=== PATIENT | female | born 1965 | race Two or more races ===

== ENCOUNTER → 2016-06-06 | Outpatient (CLI) | payer MEDICARE, OTHER ==
[~2016-06-06] MED LIST: ALPR0.5T PO; ATOR20TA38 PO; DULO60CA6 PO; NAPR-688 PO; OMEP20CA16 PO
--- NOTE | 2016-06-07 07:54 | HKNOTE ---
DATE OF SERVICE: 06/06/2016 The patient comes for preoperative evaluation. She is scheduled to have an operative arthroscopy on the ____ knee on 06/11/2016. She has been cleared for surgery by her recorder gravity prospecting, Dr. Cook. She took a recent fall 2 days ago, landing on both knees. She has some pain in the right knee, and she asked me to "check it out." The right knee was more severely injured in the fall than the left knee . She has not had any further locking episodes of the left knee. However, she continues to have pain in the knee, and from time to time it "catches." Note that she has a lump over the medial aspect of the knee at the exact point where the artificial cruciate ligament was anchored. It is not possibl e to squeeze the fluid in this "cyst" back into the knee, although I do believe that some of the kne e fluid has tracked down the cruciate ligament and ended up under the skin. The patient was advised that this may be a separate condition with a cyst which is quite large and unsightly and that I susi ht have to excise the cyst at surgery. The patient is agreeable to excising the cyst. Postoperativ e course was discussed with her. She was given prescriptions for pain medications. Dictated By: LIZZIE MINOR/DONY Conf#: [id number] DID#: [id number]
== END | disposition home or self-care (01) ==
LOC: HKI 14:00
DX: Z01.818 Encounter for other preprocedural examination (principal); S89.92XA Unspecified injury of left lower leg, initial encounter; S89.91XA Unspecified injury of right lower leg, initial encounter; W18.30XA Fall on same level, unspecified, initial encounter; M25.562 Pain in left knee; M25.561 Pain in right knee
CPT/HCPCS: G0463

== ENCOUNTER 2016-06-11 05:49 | Day surgery (SDC) | payer MEDICARE, OTHER ==
[2016-06-10 10:25] VITALS: BMI 21.4
[2016-06-11] VITALS (11 sets, daily range): BP systolic 117–138; BP diastolic 60–81; PULSE 72–102; RESP 13–20; Ht 157.5 cm; Wt 54.0 kg
[~2016-06-11] VITALS: Ht 157.5 cm; Wt 54.0 kg
[2016-06-11] MEDS ORDERED: LACTATED RINGER'S 1,000 ML IV* SCH (06:00)
[2016-06-11] MEDS ORDERED: LANSOPRAZOLE 30 MG CAP PO ONE (06:00)
[2016-06-11] MEDS ORDERED: ONDANSETRON 4 MG INJ IV ONE (06:00)
[2016-06-11] MEDS ORDERED: VANCOMYCIN 1 GM (PMX) 250 ML IVPB ONE (06:00)
[2016-06-11] MEDS ORDERED: DEXAMETHASONE 4 MG/ML 1 ML INJ IV ONE (06:00)
[2016-06-11] MEDS ORDERED: ACETAMINOPHEN 1000MG/100ML IV 100 ML IVPB ONE (06:00)
[2016-06-11] MEDS ORDERED: oxyCODONE (CR) 10 MG TAB [oxyCONTIN] PO ONE (06:00)
[2016-06-11] MEDS ORDERED: NAPR-688 PO (06:06)
[2016-06-11] MEDS ORDERED: OMEP20CA16 PO (06:06)
[2016-06-11] MEDS ORDERED: ALPR0.5T PO (06:06)
[2016-06-11] MEDS ORDERED: ATOR20TA38 PO (06:06)
[2016-06-11] MEDS ORDERED: DULO60CA6 PO (06:06)
--- NOTE | 2016-06-11 07:05 | HPN ---
Date/Time of Note Date/Time of Note DATE: 06/11/16 TIME: 07:05 Interval H&P Admission Note Pt. seen H&P reviewed: No system changes RAMONA PETERSON PA-C Jun 11, 2016 07:05
[2016-06-11] MEDS ORDERED: SUCCINYLCHOLINE CHLORIDE 100 MG/5 ML SYG IV ONE (07:10)
[2016-06-11] MEDS ORDERED: PROPOFOL 20 ML ONE (07:10)
[2016-06-11] MEDS ORDERED: ROCURONIUM 50 MG INJ ONE (07:10)
[2016-06-11] MEDS ORDERED: METOCLOPRAMIDE 10 MG INJ ONE (07:11)
[2016-06-11] MEDS ORDERED: FENTAnyl 50 MCG/ML VIAL ONE (07:11)
[2016-06-11] MEDS ORDERED: ONDANSETRON 4 MG INJ ONE (07:11)
[2016-06-11] MEDS ORDERED: BUPIVACAINE 0.25%/EPI (SDV) 30 ML INJ ONE (07:14)
[2016-06-11] MEDS ORDERED: ROPIVACAINE 0.5 % 30 ML VIAL ONE (07:14)
[2016-06-11] MEDS ORDERED: KETOROLAC 30 MG INJ ONE (07:15)
[2016-06-11] MEDS ORDERED: morphine SULFATE/PF (10 MG/10 ML) INJ ONE (07:15)
[2016-06-11] MEDS ORDERED: LIDOCAINE 1% (MPF) 30 ML INJ ONE (07:18)
[2016-06-11] MEDS ORDERED: ONDANSETRON 4 MG INJ IV PRN ×2 (08:30→10:00)
[2016-06-11] MEDS ORDERED: FENTAnyl 50 MCG/ML VIAL IV PRN ×2 (08:30)
[2016-06-11] MEDS ORDERED: HYDROmorphONE (0.2 MG/ML) 10ML SYG IV PRN ×2 (08:30)
[2016-06-11] MEDS ORDERED: MEPERIDINE 25 MG INJ IV PRN (08:30)
[2016-06-11] MEDS ORDERED: POLYMYXIN/BACITRACIN 1L IRRIG ONE (09:20)
[2016-06-11] MEDS ORDERED: HYDROCODONE/APAP (5/325) TAB PO PRN (10:00)
[2016-06-11] MEDS ORDERED: morphine 10 MG INJ IV PRN (10:00)
[2016-06-11] MEDS ORDERED: ACETAMINOPHEN 1000MG/100ML IV 100 ML IVPB SCH (10:00)
[2016-06-11] MEDS ORDERED: HYDROCODONE/APAP (10/325) TAB PO PRN (10:00)
[2016-06-11] MEDS: HYDROmorphONE (0.2 MG/ML) 10ML SYG IV PRN ×2 (10:06→10:16)
--- NOTE | 2016-06-11 11:17 | OPR ---
DATE OF OPERATION: 06/11/2016 SURGEON: Torito Suarez MD GREIGE MENDER: David Jonas PA-C ANESTHESIOLOGIST: Clark Santiago MD PREOPERATIVE DIAGNOSES: 1. Torn medial meniscus of the left knee. 2. Cyst of the medial side of the proximal leg. POSTOPERATIVE DIAGNOSES: 1. Torn medial meniscus of the left knee. 2. Cyst of the medial side of the proximal leg. POSTOPERATIVE DIAGNOSIS: 1. Operative arthroscopy of the left knee. 2. Partial medial meniscectomy. 3. Excision of separate cyst. FINDINGS AT SURGERY: In the medial compartment, the medial meniscus was found to have a bucket hand le tear extending from the posterior horn to the midpoint. Separate from this, there was a tear of t he anterior horn. There was some softening of the articular cartilage. The cruciate ligaments, whi ch had previously been operated on, were shredded, but apparently intact. The lateral compartment was completely normal except for some softening of the articular cartilage, especially on the tibial side. The patellofemoral joint showed some softening of the articular cart ilage and areas of grade I/III degenerative change. DESCRIPTION OF PROCEDURE: A. Arthroscopic part of the operation. Under general anesthetic, the left leg was prepared and mukul ped in the usual sterile fashion. A tourniquet was not used. Standard inferomedial and inferolater al portals were used. The knee was systematically inspected and the above findings were noted. Using a variety of basket forceps and the motorized intraarticular shaver, a partial medial meniscec ceci was performed both on the posterior horn and the anterior horn. The bucket was first incised a t its center and then both ends of the bucket were removed going proximally and posteriorly. The re maining meniscus was balanced and stable after a partial anterior meniscectomy was performed using t he shaver. The camera was now manipulated in the intercondylar notch where the cruciate ligaments were noted to be shredded but apparently intact. The camera was moved to the lateral compartment which was found to be completely normal. The knee was irrigated and the fluid was extracted. The wounds were closed with interrupted nylon. B. Excision of cyst. The cyst was located at the site of the distal portal of the anterior cruciate ligament repair. Thi s could be seen clearly on the x-ray. An incision was made over the anterior aspect of the cyst in the longitudinal fashion. Using blunt and sharp dissection, the cyst was mobilized. At one point, the cyst burst and the fluid that came out looked like yellow pus. It is highly unlikely that this was an infection, but fluid was sent f or culture and sensitivity. The cyst was removed, but there were remnants of the cyst remaining in the distal portal drill hole in the bone. Bleeding points were cauterized. The wound was closed using interrupted nylon. Deep sutures were u sed to close the deep space. At the end of the operation, the knee was injected with a mixture of Naropin and Toradol. The usual sterile dressings were applied. An Vineet bandage was applied. The patient returned to the recovery room in stable condition. There were no complications as far as is known. Dictated By: TORITO MINOR/DONY Conf#: [id number] DID#: [id number]
== END 2016-06-11 12:20 | disposition home or self-care (01) ==
LOC: SDS 05:49
DX: M23.232 Derangement of other medial meniscus due to old tear or injury, left knee (principal)
CPT/HCPCS: 29881; 88304; J0131; J0330; J1100; J1170; J1885; J2175; J2274; J2405; J2765; J2795; J3010; J3370; J7120

== ENCOUNTER → 2016-06-13 | Outpatient (CLI) | payer MEDICARE, OTHER ==
--- NOTE | 2016-06-13 15:44 | HKNOTE ---
DATE OF SERVICE: 06/13/2016 SUBJECTIVE: A 50-year-old female who presents today for postoperative visit status post left knee a rthroscopy with partial medial meniscectomy performed on 06/11/2016. Since the surgery, patient sta catarina she has been having minimal pain to the knee and more pain around the area of the cyst, which wa s the proximal tibia. This was also removed during surgery. Pain along the tibial spine as well. Pain is constant. Denies any falls. Has been using crutches for assisted ambulation. Denies any d ischarge or increased bleeding at wound sites. OBJECTIVE: VITAL SIGNS: Blood pressure is 132/84, temperature is 99.1 degrees, pulse is 83, respiratory rate i s 12, height is 5 feet 2 inches, weight is 118. GENERAL:. Assisted ambulation using crutches. Gait is antalgic. Upon removal of dressing, surgical wounds are clean, dry and intact. Sutures intact. Normal sensory examination to light touch. Ten derness to palpation along the tibial spine. The patient is able to flex the knee up to 90 degrees with pain. full extension. Edema to the lower extremity on the left side. No calf pain. ASSESSMENT AND PLAN: Wound sites were cleaned and dressing applied. Patient may discontinue CATRACHITO hose at this time, as sh e is stating that it is increased tightness which at times can make her leg "fall asleep." Arthroscopic pictures reviewed with the patient today and patient provided with a copy. Due to ongoing consistent pain, prescription for Percocet 5/325 mg, 1 tab p.o. every 6 hours as need ed for severe pain only #40 tablets, Celebrex 100 mg 1 tab p.o. b.i.d. for 4 weeks, #60 tablets for inflammation, Gabapentin 100 mg 1 tab p.o. b.i.d. for 4 weeks, #60 tablets for nerve pain provided f or patient today. Prescription for outpatient physical therapy also provided for patient today. Recommend that the kathe major initiate physical therapy after sutures have been removed on 06/20/2016. Follow up on 06/20/2016 for suture removal and repeat evaluation. The patient made aware that she m ay follow up sooner should there be any complication or worsening condition and she states understan ding. Dr. Tee has also seen this patient and agrees with the plan. Dictated By: RAMONA TEE MD, KP/DONY Conf#: [id number] DID#: [id number]
== END | disposition home or self-care (01) ==
LOC: HKI 14:17
DX: Z47.89 Encounter for other orthopedic aftercare (principal); M25.562 Pain in left knee; R60.0 Localized edema

== ENCOUNTER → 2016-06-20 | Outpatient (CLI) | payer MEDICARE, OTHER ==
--- NOTE | 2016-06-20 14:50 | PN ---
Date/Time of Note Date/Time of Note DATE: 06/20/16 TIME: 14:45 Outpatient Progress Note Chief Complaint Status post left knee arthroscopy with partial medial meniscectomy and excision of cyst of the proximal tibia. HPI 50-year-old female presents today for two-week postop visit status post arthroscopy with partial medial meniscectomy. Excision of cyst to the proximal tibia also performed. When she was last seen patient was having increased pain as well as limited flexibility as she was able to flex up to 90 to the left knee. Currently, patient states that her range of motion is returned to normal. She does however, continues using single-point cane when she is out in public due to fear of falling. Patient denies any falls. At home, patient is walking independently without hesitation. Continues to progress status post surgery. Presents today for suture removal and repeat evaluation. Review of Systems Const: No Fever, no chills, no Wt. loss, no Fatigue, normal appetite, no diaphoresis. Physical Exam General Appearance: well-developed, well-nourished, in no acute distress. Left knee: Slight limp with gait. Using single-point cane for assisted ambulation. Patient asked to walk independently, able to perform ambulation independent of any device. No pain with gait. Tenderness to palpation to the lateral knee around incision site. No bruising or ecchymosis surrounding wound sites. Normal sensory examination to light touch. No discharge. No signs of infection. Negative Homans sign. Patient has full range of motion to the left knee with flexion and extension. No instability. 5/5 strength on resistance with flexion and extension. Allergies Coded Allergies: No Known Allergy (Verified , 06/11/16) Family Hx Patient History: Diabetes mellitus Assessment/Plan * Suture removal performed today * Patient may initiate physical therapy for improved functionality, range of motion, decrease pain * Anti-inflammatories as needed for pain * At this stage, patient may follow-up as needed. Patient made aware that she may return to clinic should she experience any complications or feels that she needs to be seen and she states understanding and compliance. Patient was also seen with Dr. Suarez who agrees with plan. Medications Home Meds Reported Medications Naproxen* (Naproxen*) 500 Mg Tablet, 500 MG PO BID Y for PAIN, TAB 06/11/16 Duloxetine Hcl* (Cymbalta*) 60 Mg Capsule.dr, 60 MG PO DAILY, CAP 06/11/16 Omeprazole* (Omeprazole*) 20 Mg Capsule.dr, 20 MG PO BID, #60 CAP 06/11/16 Atorvastatin Calcium* (Atorvastatin Calcium*) 20 Mg Tablet, 20 MG PO QHS, #30 TAB 06/11/16 Alprazolam* (Xanax*) 0.5 Mg Tab, 0.5 MG PO Q8H Y for ANXIETY, TAB 06/11/16 RAMONA PETERSON PA-C Jun 20, 2016 14:50
== END | disposition home or self-care (01) ==
LOC: HKI 14:01
DX: Z47.89 Encounter for other orthopedic aftercare (principal)

== ENCOUNTER → 2016-06-25 | Outpatient (CLI) | payer MEDICARE, OTHER ==
--- NOTE | 2016-06-25 16:50 | PN ---
Date/Time of Note Date/Time of Note DATE: 06/25/16 TIME: 16:43 Outpatient Progress Note Chief Complaint Superficial wound infection to the left proximal tibia status post mass excision on 06/11/2016 due to recent fall on 06/21/2016. HPI 50-year-old female presents today for repeat evaluation due to recent diagnosis of superficial wound infection to the left proximal tibia at wound site where she had a recent mass excision performed on 06/11/2016. Superficial wound infection comes secondary to recent fall that was experienced on 06/21/2016. Patient states that she was getting out of bed where she tripped over her shoe and landed over the operative knee. Patient also had arthroscopy performed on the date of surgery as well. No complications to wound sites where arthroscopy was performed but wound where mass excision to the proximal tibia was determined to be infected after patient presented to the emergency room at [facility]. Patient states that lavage of proximal tibia was performed and patient was then placed on Bactrim DS with instructions to take twice a day for 10 days. Patient was also provided with knee immobilizer and crutches. Patient is able to place partial weightbearing but continues using the immobilizer to reduce any flexion. No complications since discharge from emergency room on 06/22/2016. Presents today for wound check. Review of Systems Const: No Fever, no chills, no Fatigue, normal appetite, no diaphoresis. Resp: No SOB, no wheezing, no chest pain. CV: No chest pain, no palpitaions, no PRECIADO. Physical Exam General Appearance: well-developed, well-nourished, in no acute distress. Left knee: Surgical wounds status post arthroscopy of the anterior left knee remained clean dry and intact with no signs of infection. After removal of dressing to the region of proximal tibia mass excision, small discharge presentation with erythema surrounding wound borders. Tenderness to palpation. No calf pain. Negative Homans sign. Normal sensory examination to light touch. Range of motion to the left knee was not performed today. Patient states that redness has improved since emergency room visit now that she is on antibiotics. Allergies Coded Allergies: No Known Allergy (Verified , 06/11/16) Family Hx Patient History: Diabetes mellitus Assessment/Plan * Dress change performed today. * Advised to continue with Bactrim DS for the remainder of the 10 days. * Wound care instructions discussed in detail with patient. Patient may remove dressing and use Hibiclens that was provided for her to clean wound and then reapply new dressing. Patient states understanding and compliance. May perform this once daily. * Patient advised to follow-up in 1 week for repeat evaluation and monitoring of wound. Patient also made aware that wound culture will likely be obtained 24 hours after last dose of antibiotics to ensure that infection has cleared. * Follow-up 1 week for repeat wound check. * Pathology report of mass that was excised to the proximal tibia has returned. 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 No evidence of malignancy. Dr. Suarez was present for examination and agrees with plan. Medications Home Meds Reported Medications Naproxen* (Naproxen*) 500 Mg Tablet, 500 MG PO BID Y for PAIN, TAB 06/11/16 Duloxetine Hcl* (Cymbalta*) 60 Mg Capsule.dr, 60 MG PO DAILY, CAP 06/11/16 Omeprazole* (Omeprazole*) 20 Mg Capsule.dr, 20 MG PO BID, #60 CAP 06/11/16 Atorvastatin Calcium* (Atorvastatin Calcium*) 20 Mg Tablet, 20 MG PO QHS, #30 TAB 06/11/16 Alprazolam* (Xanax*) 0.5 Mg Tab, 0.5 MG PO Q8H Y for ANXIETY, TAB 06/11/16 RAMONA PETERSON PA-C Jun 25, 2016 16:50
== END | disposition home or self-care (01) ==
LOC: HKI 15:41
DX: T81.4XXA Infection following a procedure, initial encounter (principal); M25.862 Other specified joint disorders, left knee
CPT/HCPCS: G0463

== ENCOUNTER → 2016-07-02 | Outpatient (CLI) | payer MEDICARE, OTHER ==
--- NOTE | 2016-06-29 21:33 | EN ---
Date/Time of Note Date/Time of Note DATE: 06/29/16 TIME: 21:29 Event Note Surgery Surgery Event Note The patient called the exchange on 06/29/16 at approximately 9pm stating that her arthroscopy portal holes were "weeping." Apparently it has been an ongoing issue since the surgery. She was seen recently by Bryan and Dr. Suarez. She was also seen in the emergency department and started on antibiotics. She denies any fevers, chills, redness, increased pain, or swelling. She has been using steri strips to reapproximate the portal holes but states they are not staying on. I advised her to use bandaids instead of the steri strips to keep the wounds covered. Additionally she is to continue the antibiotics as prescribed. She is also to continue using the hibeclens soap given to her in the office by the [facility] team. She has an appointment scheduled for this friday and should keep the appointment as planned. If she develops any increased pain, redness, swelling, or fever, she is to go to the emergency department. This was discussed with the patient at length who demonstrates understanding. ELENA SALINAS PA-C Jun 29, 2016 21:32
--- NOTE | 2016-07-02 16:31 | PN ---
Date/Time of Note Date/Time of Note DATE: 07/02/16 TIME: 16:10 Outpatient Progress Note Chief Complaint Status post left knee arthroscopy with partial medial meniscectomy and excision of cyst to the proximal tibia on 06/11/2016. Follow-up on surgical wound infection to the proximal tibia. HPI 50-year-old female presents today for wound check to the left proximal tibia. She is also status post left knee arthroscopy with partial medial meniscectomy and excision of mass to the proximal tibia performed on 06/11/2016. Patient was doing well postoperatively. Sutures removed on 06/20/2016. On 06/21/2016, patient calls in to the office as she states that she had a slip and fall over her shoe while getting out of bed and landing directly over the operative knee ( left knee). Patient states that she took an opiate medication prior to fall and she did feel a bit woozy and tripped over her sneaker. Patient noted over the phone that she had small amount of bleeding at surgical wound that was self- limiting. She denied any complication to the wound as Steri-Strips remained intact with no rupturing. Patient was advised to follow-up in the office at next open appointment the following week. Over that weekend, she presented to the emergency room at [facility] as she was having ongoing complications and pain. Diagnosed with infection to the proximal tibia at region of mass excision with dehiscence of wound. Patient was provided with Bactrim DS twice daily for 10 days. Patient was given knee immobilizer at emergency room visit with instructions to keep the immobilizer on at all times. Pain improved to wound site. Patient was seen on 06/25/2016 where there was mild discharge presentation. Dress change performed at area of wound with repeat wound instructions given at time of appoint. Patient was also advised to continue with antibiotics. Patient was provided with knee immobilizer at emergency room visit. Patient was given instructions to remain in knee immobilizer at all times especially while wound is healing to prevent increase stretching and pulling of wound while he is performing secondary closure as this particular region is subject to increased stretching due to flexion at the knee. Appointment was made for patient to follow-up in 1 week. After last appointment on 06/25/2016, patient states that there was a time where she removed knee immobilizer and experienced buckling of the left knee which created discomfort and repeat bleeding at wound site. Patient presented back to [facility] in the emergency room where repeat x-rays were taken, the patient states were negative. She does not present with copy today. No wound care was performed as she was told by emergency room physician that there is no complication after knee has been buckling. Knee continues to buckle and she has clicking complaints at this time. She states that wound continues to improve. Minimal discharge since she has been on antibiotics. Redness surrounding wound has improved. Continues with secondary closure of wound site status post infection. No complaints to other wound sites status post arthroscopy. Denies any falls. Denies any systemic symptoms such as fever, chills or malaise. Review of Systems Const: No Fever, no chills, no Fatigue, normal appetite, no diaphoresis. Resp: No SOB, no wheezing, no chest pain. CV: No chest pain, no palpitaions, no PRECIADO. Physical Exam General Appearance: well-developed, well-nourished, in no acute distress. Left knee: No discharge presentation to area of wound at the proximal tibia. No surrounding erythema. Significant improvement in comparison to last week's exam. Continues with secondary closure. Patient is able to flex up to 90. About 5 lag from full extension with pain when she attempts full extension. Patient has complaints of clicking and popping today. Normal sensory examination to light touch. 4/5 strength on resistance with extension and flexion. Allergies Coded Allergies: No Known Allergy (Verified , 06/11/16) Family Hx Patient History: Diabetes mellitus Assessment/Plan * Continued healing status post infection at region of excision of cyst surgery performed on 06/11/2016. * Continue with Bactrim DS until she has completed antibiotic regimen. * Wound site clean today. Steri-Strips reapplied today with repeat instructions to remain in knee immobilizer. * Patient was seen with Dr. Suarez today, there is suspicion of possible repeat tearing of the meniscus status post fall after tripping on her shoe as she is now had new onset of clicking and popping. We will have to re-evaluate once infection has been cleared. * Continue with pain medications as needed. * Follow-up 1 week for repeat evaluation and wound check. * Patient was made aware that there will likely be increased scarring due to wound dehiscence status post fall to the proximal tibia of the left lower extremity. Secondary closure is recommended at this point as it will be increased risk with repeat suturing as this may seal any infection into the wound. She states understanding. * It is important to note, that there is concern regarding patient compliance as she was advised to remain in knee immobilizer and removed immobilizer which led to buckling and repeat visit to the emergency room. Patient did experience near fall after removing the immobilizer against instructions. Dr. Suarez was present during exam and agrees with plan. Medications Home Meds Reported Medications Naproxen* (Naproxen*) 500 Mg Tablet, 500 MG PO BID Y for PAIN, TAB 06/11/16 Duloxetine Hcl* (Cymbalta*) 60 Mg Capsule.dr, 60 MG PO DAILY, CAP 06/11/16 Omeprazole* (Omeprazole*) 20 Mg Capsule.dr, 20 MG PO BID, #60 CAP 06/11/16 Atorvastatin Calcium* (Atorvastatin Calcium*) 20 Mg Tablet, 20 MG PO QHS, #30 TAB 06/11/16 Alprazolam* (Xanax*) 0.5 Mg Tab, 0.5 MG PO Q8H Y for ANXIETY, TAB 06/11/16 RAMONA PETERSON PA-C Jul 02, 2016 16:22
== END | disposition home or self-care (01) ==
LOC: HKI 15:34
DX: Z48.01 Encounter for change or removal of surgical wound dressing (principal); T81.30XD Disruption of wound, unspecified, subsequent encounter; S81.002D Unspecified open wound, left knee, subsequent encounter

== ENCOUNTER → 2016-07-09 | Outpatient (CLI) | payer MEDICARE, OTHER ==
--- NOTE | 2016-07-09 17:31 | PN ---
Date/Time of Note Date/Time of Note DATE: 07/09/16 TIME: 17:26 Outpatient Progress Note Chief Complaint Wound check status post arthroscopy. HPI 50-year-old female presents today for one-week wound check status post skin infection/wound infection that occurred postoperatively to the proximal tibia where the mass was excised. Patient states that wound continues to heal. She continues to experience instability to the knee but this time confirms that she has been using the immobilizer at all times. No falls. No near falls since she was last seen. Presents today for wound check. Review of Systems Const: No Fever, no chills, no Fatigue, normal appetite, no diaphoresis. Resp: No SOB, no wheezing, no chest pain. CV: No chest pain, no palpitaions, no PRECIADO. Physical Exam General Appearance: well-developed, well-nourished, in no acute distress. Left knee: Well-healed surgical wounds at the region of arthroscopy. Wound to the proximal left tibia continues to heal. No discharge present. No signs of infection. Patient has completed antibiotic regimen. Tenderness to palpation to the distal region of the proximal tibial wound. Patient is able to extend with about 5 lag from full extension. Patient is able to flex up to 90. 4/5 strength on resistance with discomfort. No calf pain/negative Homans sign. Allergies Coded Allergies: No Known Allergy (Verified , 06/11/16) Family Hx Patient History: Diabetes mellitus Assessment/Plan * Repeat wound culture taken today. * Patient states that she may be in need of additional prescription pain medication. Patient states that she also has history of back pain and was seeing a software quality assurance specialist. She was referred to a hand touch up painter, who recommended spinal cord stimulator but patient declined. She would like repeat prescription of Percocet for management of pain to the knee and lower back. It was advised that patient continue with [id number] anti- inflammatories at this time but if pain should continue or worsen, repeat discussion of possible prescription pain medication will be had on follow-up. There is concern however, and patient was advised to follow-up with hand touch up painter to manage chronic pain complaints especially given her past spinal issues. * Steri-Strips reapplied today. * Follow-up 10 days for repeat evaluation. * Prescription for outpatient physical therapy had today for increased strength and range of motion to the knee. Patient does have complaints of ongoing clicking and popping, if she continues to have slow progression in regards to functionality with ongoing instability, possible repeat MRI as well as repeat evaluation to determine if further arthroscopic surgery versus alternative option will be had. * Patient education materials provided for patient today regarding fall prevention. Dr. Suarez was present for exam. Dr. Suarez agrees with plan. Medications Home Meds Reported Medications Naproxen* (Naproxen*) 500 Mg Tablet, 500 MG PO BID Y for PAIN, TAB 06/11/16 Duloxetine Hcl* (Cymbalta*) 60 Mg Capsule.dr, 60 MG PO DAILY, CAP 06/11/16 Omeprazole* (Omeprazole*) 20 Mg Capsule.dr, 20 MG PO BID, #60 CAP 06/11/16 Atorvastatin Calcium* (Atorvastatin Calcium*) 20 Mg Tablet, 20 MG PO QHS, #30 TAB 06/11/16 Alprazolam* (Xanax*) 0.5 Mg Tab, 0.5 MG PO Q8H Y for ANXIETY, TAB 06/11/16 RAMONA PETERSON PA-C Jul 09, 2016 17:31
== END | disposition home or self-care (01) ==
LOC: HKI 15:37
DX: Z48.00 Encounter for change or removal of nonsurgical wound dressing (principal); T81.4XXA Infection following a procedure, initial encounter; M25.562 Pain in left knee

== ENCOUNTER → 2016-07-18 | Outpatient (CLI) | payer MEDICARE, OTHER ==
--- NOTE | 2016-07-18 16:20 | PN ---
Date/Time of Note Date/Time of Note DATE: 07/18/16 TIME: 16:12 Outpatient Progress Note Chief Complaint Follow-up wound check. HPI 50-year-old female presents today for wound check status post arthroscopic surgery with excision of proximal tibia mass which resulted in post surgical wound infection. Patient was on a trial of Bactrim DS. After patient completed antibiotic regimen she followed up 24 hours after last dose of antibiotics for repeat wound culture. Culture returned on 07/15/2016 showing continued "heavy growth of Staphylococcus aureus". Culture was from [facility]. Patient was notified on the day and repeat antibiotic of Keflex 500 mg 1 tab every 6 hours 10 days provided for the patient. 40 tablets given. Patient has been on antibiotics for the past 2 days. Patient states that it has been going well with no complications. Patient continues with severe pain complaints but when asked patient states that her pain is coming from the coccyx. She does state that she has pre-existing history of coxalgia. In regards to the knee her biggest complaint is weakness. She would like to know when she can start outpatient physical therapy. Denies any falls since she was last seen. She is no longer using the immobilizer and is ambulating independently. Review of Systems Const: No Fever, no chills, no Fatigue, normal appetite, no diaphoresis. Resp: No SOB, no wheezing, no chest pain. CV: No chest pain, no palpitaions, no PRECIADO. Physical Exam Blood pressure is 135/78, temperature is 98.1, pulse is 79, respiratory rate is 12, height is 5 foot 2 inches, weight is 118 pounds. General Appearance: well-developed, well-nourished, in no acute distress. Left knee: Gait is nonantalgic but there is slight limp due to weakness of the left knee. Patient has about 20 lag from full extension and is able to flex up to 110. 4/5 weakness on flexion and extension. No tenderness to palpation today. Wound site at the area of proximal tibial mass excision is healing well status post infection. No discharge seen on exam today. Normal sensory examination to light touch. Secondary closure continues. Allergies Coded Allergies: No Known Allergy (Verified , 06/11/16) Family Hx Patient History: Diabetes mellitus Assessment/Plan * Dress change performed today with reapplication of Steri-Strips. Wound was cleaned prior to reapplication of Steri-Strips. * Continue wound care with repeat instructions discussed today. * At this stage patient may initiate outpatient physical therapy with no heavy or strenuous activity. Prescription was provided for patient today. * Continue with Keflex 500 mg until completion of anabiotic regimen. * Patient will follow-up next week. Patient will need a repeat culture taken at least 24 hours after last dose of antibiotic to ensure that there is no longer any bacteria. * At home exercises discussed and displayed on exam today. Patient education material provided for patient today as well for at home exercises to increase knee range of motion and strengthening. * In regards to pain medication, patient was advised to follow-up with PCP for repeat referral to animated cartoons painter for chronic coxalgia. Dr. Suarez was present for exam today and agrees with plan. Copy of lab results from [facility] are in patient's chart. Medications Home Meds Reported Medications Naproxen* (Naproxen*) 500 Mg Tablet, 500 MG PO BID Y for PAIN, TAB 06/11/16 Duloxetine Hcl* (Cymbalta*) 60 Mg Capsule.dr, 60 MG PO DAILY, CAP 06/11/16 Omeprazole* (Omeprazole*) 20 Mg Capsule.dr, 20 MG PO BID, #60 CAP 06/11/16 Atorvastatin Calcium* (Atorvastatin Calcium*) 20 Mg Tablet, 20 MG PO QHS, #30 TAB 06/11/16 Alprazolam* (Xanax*) 0.5 Mg Tab, 0.5 MG PO Q8H Y for ANXIETY, TAB 06/11/16 RAMONA PETERSON PA-C Jul 18, 2016 16:20
== END | disposition home or self-care (01) ==
LOC: HKI 15:43
DX: Z47.89 Encounter for other orthopedic aftercare (principal); T81.4XXA Infection following a procedure, initial encounter

== ENCOUNTER → 2016-08-01 | Outpatient (CLI) | payer MEDICARE, OTHER ==
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
== END | disposition home or self-care (01) ==
LOC: HKI 14:47
DX: Z09 Encounter for follow-up examination after completed treatment for conditions other than malignant neoplasm (principal); Z86.19 Personal history of other infectious and parasitic diseases

== ENCOUNTER → 2016-09-19 | Outpatient (CLI) | payer MEDICARE, OTHER ==
--- NOTE | 2016-09-19 16:45 | PN ---
Date/Time of Note Date/Time of Note DATE: 09/19/16 TIME: 16:40 Outpatient Progress Note Chief Complaint Pain to the left patella HPI 50-year-old female presents today for follow-up regarding pain directly over the patella. She is status post left knee arthroscopy with meniscectomy performed on 06/11/2016. Patient also had excision of mass. Had fall creating a wound dehiscence of the surgical wound where mass excision was performed to the proximal tibia. Was on antibiotics and now has been doing well in that regard. Well-healed scarring. She has been performing physical therapy which she states has significantly improved her functionality but she continues with weakness mostly with extension. She began to develop some tenderness to palpation directly over the patella. No falls or direct trauma to the patella. In regards to daily activity she does minimal walking, per patient account but she does travel up and down multiple levels of stairs daily as there is no elevator access where she lives. Pain exacerbates to the patella usually with ascending and descending stairs. Denies any injury. Review of Systems Const: No Fever, no chills, no Fatigue, normal appetite, no diaphoresis. Resp: No SOB, no wheezing, no chest pain. CV: No chest pain, no palpitaions, no PRECIADO. Physical Exam Blood pressure is 119/80, temperature is 98.4, pulse is 73, respiratory rate is 12, height is 5 feet 2 inches, weight is 120 pounds General Appearance: well-developed, well-nourished, in no acute distress. Left knee: Well-healed scarring from previous arthroscopic surgery as well as mass excision. No abnormalities. No swelling on inspection. No swelling on palpation. Patient has mild tenderness to palpation to the superior lateral pole of the left patella. No palpable mass. In regards to range of motion patient has full range of motion with active flexion and extension on examination. 5/5 strength on resistance with flexion with about 4+/5 strength on resistance with extension. Normal sensory examination to light touch. Patient uses single-point cane for assisted ambulation. Denies any pain with weightbearing today. Allergies Coded Allergies: No Known Allergy (Verified , 06/11/16) Family Hx Patient History: Diabetes mellitus Assessment/Plan * Patient continues to do well with physical therapy. * High suspicion of prepatellar bursitis given the area where patient has the most pain complaints. Rest, ice, compression and elevation recommended today. Tylenol recommended as needed for pain and inflammation. Patient has history of gastritis and therefore anti-inflammatories not recommended to reduce any increased acidic content to the stomach. Patient states that she will follow- up with PCP to determine if anti-inflammatories are optimal especially given her pre-existing history of gastritis. * Patient advised to continue home exercise program as she states that she forgets to perform exercises at home often. Focus on quad and hamstring strengthening. * Follow-up as needed. Medications Home Meds Reported Medications Naproxen* (Naproxen*) 500 Mg Tablet, 500 MG PO BID Y for PAIN, TAB 06/11/16 Duloxetine Hcl* (Cymbalta*) 60 Mg Capsule.dr, 60 MG PO DAILY, CAP 06/11/16 Omeprazole* (Omeprazole*) 20 Mg Capsule.dr, 20 MG PO BID, #60 CAP 06/11/16 Atorvastatin Calcium* (Atorvastatin Calcium*) 20 Mg Tablet, 20 MG PO QHS, #30 TAB 06/11/16 Alprazolam* (Xanax*) 0.5 Mg Tab, 0.5 MG PO Q8H Y for ANXIETY, TAB 06/11/16 RAMONA PETERSON PA-C Sep 19, 2016 16:45
== END | disposition home or self-care (01) ==
LOC: HKI 15:42
DX: M25.562 Pain in left knee (principal)
CPT/HCPCS: G0463

== ENCOUNTER → 2017-09-29 | Outpatient (CLI) | END | disposition home or self-care (01) ==